=== PATIENT | male | born 1960 | race Caucasian/White ===

== ENCOUNTER 2019-05-13 01:43 | Day surgery (SDC) | payer BC, SELFPAY ==
[2019-05-11 08:53] VITALS: BMI 32.2
[2019-05-13 09:53] VITALS: BP 159/84; PULSE 51; RESP 16; TEMP 36.3; O2SAT 99; BMI 31.4
--- NOTE | 2019-05-13 10:02 | P.PNAN_ITS ---
Anes - Initial Pre Proc Eval Procedure: Operation Date: 05/13/19 10:15 Proposed Procedures p Screening Colonoscopy - Guille Meyers MD Date/Time: 05/13/19 10:02 Surgeon: Guille Meyers MD Pre Op Diagnosis: Neoplasm Screening Patient Data Age: 58 Gender: M Height: 5 ft 10 in Weight: 99.4 kg Last Vital Signs Temp 97.4 F L 05/13/19 09:53 Pulse 51 L 05/13/19 09:53 Resp 16 05/13/19 09:53 BP 159/84 H 05/13/19 09:53 Pulse Ox 99 05/13/19 09:53 Allergies Allergy/AdvReac Type Severity Reaction Status Date / Time No Known Allergies Allergy Verified 05/13/19 09:51 Home Medications Medication Instructions Recorded Confirmed Type aspirin [Aspir-81] 81 mg PO DAILY 05/11/19 05/13/19 History losartan-hydrochlorothiazide 1 tablet PO DAILY 05/11/19 05/13/19 History nebivolol [Bystolic] 20 mg PO DAILY 05/11/19 05/13/19 History peg 3350-electrolytes 236 240 ml PO Q10M #4000 ml 05/11/19 Rx gram-22.74 gram-6.74 gram-5.86 gram solution Patient hx anesthesia problems: none Family hx anesthesia problems: none [facility] Past Medical History Medical History (Updated 05/13/19 @ 10:02 by Jeevan Ley MD) Hypertension Anes - Eval Final PreProcedure Day of Procedure 05/13/19 10:02 Patient weight: overweight Heart: regular rate and rhythm Lungs: clear to auscultation Airway: Mallampati scale class II Neurological: alert and oriented Last oral intake: >/= 8 hours ASA classification: II Emergent: no Anesthetic plan: proceed Anesthesia type and monitoring: general GIVS and standard monitoring Informed Consent: The patient's anesthetic plan and its attendant risks and benefits were discussed with the patient/family/POA. Questions were solicited and answers provided to the satisfaction of the patient/family/POA.
[2019-05-13] MEDS: LACTATED RINGERS 1,000 ML 150 ML IV CONT (10:04)
--- NOTE | 2019-05-13 10:49 | PM.HPGS ---
History of Present Illness History of Present Illness Consent: Risks, benefits, and alternatives have been discussed and questions answered. Patient agrees to proceed with procedure. Chief complaint: Neoplasm Screening Narrative: Rustam Michelle is a 58 year old male here for screening colonoscopy, last one was normal but about 15 years ago Review of Systems Constitutional: Constitutional: Denies headache(s) and Denies weakness Eyes: Eyes: Denies blurry vision ENT: Reports Normal hearing present, Denies headache(s) and Denies neck pain Cardiovascular: Cardiovascular: Denies chest pain and Denies dyspnea Respiratory: Respiratory: Denies dyspnea Gastrointestinal: Gastrointestinal: Reports no additional gastrointestinal complaints Genitourinary: Genitourinary: Denies dysuria Musculoskeletal: Musculoskeletal: Denies neck pain Integumentary/Breasts: Skin/Breast: Denies dry skin Neurologic: Reports Normal hearing present, Denies headache(s) and Denies weakness Psychiatric: Psychiatric: Denies anxiety Endocrine: Endocrine: Denies change in body appearance Hematologic/Lymphatic: Hematologic/Lymphatic: Denies easy bleeding Allergic/Immunologic: Allergic/Immunologic: Denies urticaria PMFSH Past Medical History Medical History (Updated 05/13/19 @ 10:50 by Guille Meyers MD) Colon cancer screening Hypertension Meds Home Medications and Allergies Home Medications Medication Instructions Recorded Confirmed Type aspirin [Aspir-81] 81 mg PO DAILY 05/11/19 05/13/19 History losartan-hydrochlorothiazide 1 tablet PO DAILY 05/11/19 05/13/19 History nebivolol [Bystolic] 20 mg PO DAILY 05/11/19 05/13/19 History peg 3350-electrolytes 236 240 ml PO Q10M #4000 ml 05/11/19 Rx gram-22.74 gram-6.74 gram-5.86 gram solution Allergies Allergy/AdvReac Type Severity Reaction Status Date / Time No Known Allergies Allergy Verified 05/13/19 09:51 Vital Signs Vital Signs - 24 hr 05/13/19 09:53 Temperature 97.4 F L Pulse Rate 51 L Respiratory Rate 16 Blood Pressure 159/84 H Pulse Oximetry 99 Exam Const: General: comfortable and no acute distress HENMT: General nose exam: Normal nares present Eyes: General: appearance normal, both eyes and all related structures Neck: Neck: no JVD Resp: Auscultation: clear to auscultation bilaterally Cardio: Rate: regular rate Rhythm: regular rhythm GI: Inspection: non-distended GI Palp: Yes Soft to palpation Skin: General skin exam: normal color Neuro: General: gait normal Speech: normal speech Extrem: General: normal to inspection Psych: Mental Status: mental status grossly normal Assessment and Plan Assessment and plan (1) Colon cancer screening: Code(s): Z12.11 - Encounter for screening for malignant neoplasm of colon Status: Acute Assessment and Plan: will proceed with colonoscopy (2) Hypertension: Qualifiers: Hypertension type: essential hypertension Qualified Code(s): I10 - Essential (primary) hypertension Code(s): I10 - Essential (primary) hypertension Status: Acute
[2019-05-13 11:12] VITALS: BP 118/80; PULSE 65; RESP 15; O2SAT 99
[2019-05-13 11:22] VITALS: BP 135/79; PULSE 56; RESP 13; O2SAT 100
[2019-05-13 11:31] VITALS: BP 151/98; PULSE 55; RESP 19; O2SAT 100
== END 2019-05-13 11:45 | disposition home or self-care (01) ==
PROVIDERS: PCP Family Medicine Sports Medicine; Visit Provider Internal Medicine Gastroenterology
PROC: 0DJD8ZZ Inspection of Lower Intestinal Tract, Via Natural or Artificial Opening Endoscopic (ICD-10-PCS; CPT 45378; principal; 2019-05-13 10:15)
DX: Z12.11 Encounter for screening for malignant neoplasm of colon (principal); K57.30 Diverticulosis of large intestine without perforation or abscess without bleeding; I10 Essential (primary) hypertension; Z79.82 Long term (current) use of aspirin
CPT/HCPCS: 45378; J2704; J7120

== ENCOUNTER 2021-07-15 11:37 | Emergency (ER) | payer BC, SELFPAY ==
[2021-07-15] VITALS (7 sets, daily range): BP systolic 118–150; BP diastolic 71–84; PULSE 48–65; RESP 11–18; O2SAT 97–100
--- NOTE | ~2021-07-15 | CT_ITS ---
EXAMINATION: CT brain wo con DATE: 07/15/2021 13:03 INDICATION: Dizziness TECHNIQUE: Computed tomography (CT) of the head was performed without intravenous contrast. Sagittal and coronal reconstructions were performed. The mA was adjusted according to patient size. Iterative reconstruction technique was employed. The dose-length product was 605.33 mGy-cm. COMPARISON: head CT dated 11/10/2016 FINDINGS: No acute intracranial hemorrhage, acute infarction or abnormal extra axial fluid collection. No inter sis change in disproportionate ventricular dilatation of the ventricles relative to the sulci. No mas s/mass effect. The orbits, paranasal sinuses and mastoid air cells are normal. IMPRESSION: 1. Persistent ventriculomegaly which could be due to central predominant volume loss versus normal pr essure hydrocephalus (NPH: clinical triad ataxia/gait disturbance, dementia, urinary incontinence). Reviewed, dictated and finalized at location A. IMPRESSION: 1. Persistent ventriculomegaly which could be due to central predominant volume loss versus normal pressure hydrocephalus (NPH: clinical triad ataxia/gait disturbance, dementia, urinary incontinence).
--- NOTE | 2021-07-15 11:49 | ECG_ITS ---
Measurements Intervals [place] Rate: 50 P: 5 DE: 174 QRS: -13 QRSD: 120 T: 13 QT: 434 QTc: 396 Interpretive Statements SINUS BRADYCARDIA MODERATE INTRAVENTRICULAR CONDUCTION DELAY [110+ ms QRS DURATION] OTHERWISE UNREMARKABLE ECG NO PREVIOUS ECG AVAILABLE FOR COMPARISON Electronically Signed On 07-16-2021 16:05:31 CDT by Emery Cruz M.D.
[2021-07-15 12:06] LABS: Basophils Percent Auto 0.2 % (0.2-1.2); Eosinophils Absolute Auto 0.2 K/mm3 (0-0.3); Eosinophils Percent Auto 2.4 % (0-4.4); Hematocrit 43.8 % (42.0-52.0); Hemoglobin 14.9 g/dL (14.0-18.0); Immature Granulocyte Absolute 0.02 K/mm3 (0.00-0.031); Immature Granulocyte Percent A 0.3 % (0-0.5); Lymphocytes Absolute Auto 1.58 K/mm3 (0.9-3.2); Mean Corpuscular Hemoglobin 30.9 pg (26-34); Mean Corpuscular Volume 90.9 fl (80-100); Mean Platelet Volume 10.7 fl (7.4-10.4); Monocytes Absolute Auto 0.8 K/mm3 (0.1-0.6); Neutrophils Absolute Auto 3.8 K/mm3 (1.3-6.7); Neutrophils Percent Auto 60.1 % (45.5-73.1); Platelet Count Result 241 k/mm3 (150-375); Red Blood Count 4.82 M/mm3 (4.6-6.20); Red Cell Distribution Width 11.8 % (11.5-14.5); White Blood Count 6.3 K/mm3 (4.5-10.0)
[2021-07-15 12:17] LABS: Alanine Aminotransferase 34 U/L (4-50); Albumin Level 4.7 g/dL (3.5-5.1); Alkaline Phosphatase 73 U/L (38-126); Anion Gap 8 mmol/L (8-16); Aspartate Amino Transferase 34 U/L (17-59); Bilirubin,Total 0.4 mg/dL (0.2-1.3); Blood Urea Nitrogen 20 mg/dL (9-20); Calcium 9.4 mg/dL (8.4-10.2); Carbon Dioxide 30 mmol/L (22-30); Chloride 99 mmol/L (98-107); Estimated CRCL calculation 75 ml/min; Estimated Glomerular Filt Rate > 60; Glucose 208 mg/dL (65-110); Potassium 3.6 mmol/L (3.4-5.0); Sodium 137 mmol/L (137-145)
--- NOTE | 2021-07-15 12:27 | ED.DIZZY ---
HPI - Dizziness General Chief Complaint: Dizziness Stated Complaint: almost passed out Time Seen by Provider: 07/15/21 12:11 Source: patient Mode of arrival: ambulatory Limitations: no limitations History of Present Illness HPI Narrative: Patient is a 60-year-old male complaining of near syncopal episode while at [employer] today. Patient states that he felt dizzy and almost passed out. Patient denies any speech or visual disturbance, focal weakness or numbness, chest pain, shortness of breath, abdominal pain, nausea, vomiting, diaphoresis, fever or chills. Patient currently asymptomatic, states that he is feeling better, no complaints at this time. Related Data Home Medications Medication Instructions Recorded Confirmed aspirin [Aspir-81] 81 mg PO DAILY 05/11/19 07/15/21 losartan-hydrochlorothiazide 1 tablet PO DAILY 05/11/19 07/15/21 nebivolol [Bystolic] 20 mg PO DAILY 05/11/19 07/15/21 amlodipine 10 mg PO DAILY 07/15/21 07/15/21 metformin 500 mg PO BID 07/15/21 07/15/21 Allergies Allergy/AdvReac Type Severity Reaction Status Date / Time No Known Allergies Allergy Verified 05/13/19 09:51 Review of Systems Review of Systems: All systems reviewed & are unremarkable except as noted in HPI and below Constitutional: Constitutional: Denies body ache(s), Denies chills, Denies excessive sweating, Denies fatigue, Denies fever(s), Denies headache(s), Denies lethargy, Denies malaise, Denies weakness and Denies weight loss Eyes: Eyes: Denies blurry vision, Denies change in vision and Denies loss of vision ENT: Denies dizziness, Denies ear discharge, Denies headache(s), Denies lip swelling, Denies epistaxis, Denies nasal congestion, Denies neck pain, Denies throat swelling and Denies tongue swelling Cardiovascular: Cardiovascular: Denies chest pain, Denies chest pain at rest, Denies chest pain with activity, Denies diaphoresis, Denies rapid heart rate, Denies edema, Denies irregular heart rhythm, Denies lightheadedness, Denies palpitations, Denies dyspnea and Denies dyspnea on exertion Respiratory: Respiratory: Denies chest congestion, Denies cough, Denies hemoptysis, Denies dyspnea and Denies dyspnea on exertion Gastrointestinal: Gastrointestinal: Denies abdominal pain, Denies melena, Denies hematochezia, Denies diarrhea, Denies nausea, Denies vomiting and Denies hematemesis Musculoskeletal: Musculoskeletal: Denies abnormal gait, Denies deformity, Denies joint swelling, Denies limited range of motion, Denies neck pain and Denies numbness Neurologic: Denies Abnormal speech present, Denies abnormal gait, Denies confusion, Denies headache(s), Denies focal weakness, Denies loss of vision, Denies numbness, Denies Other visual disturbances, Denies Sensory deficit (Neuro) and Denies weakness Psychiatric: Psychiatric: Denies confusion, Denies depression, Denies auditory hallucinations, Denies homicidal ideation and Denies suicidal ideation Endocrine: Endocrine: Denies cold intolerance, Denies excessive sweating, Denies fatigue, Denies heat intolerance and Denies palpitations Hematologic/Lymphatic: Hematologic/Lymphatic: Denies easy bleeding and Denies easy bruising Allergic/Immunologic: Allergic/Immunologic: Denies lip swelling, Denies throat swelling and Denies tongue swelling [facility] Past Medical History Medical History (Updated 07/15/21 @ 14:05 by Davie Johnston MD) Colon cancer screening Hypertension Comments Family history: Hypertension Social history: Non-smoker no EtOH or drug use Exam Const: General: cooperative, healthy appearing, comfortable, no acute distress, well developed, alert and awake; No confusion Orientation/consciousness: oriented to person, oriented to place, oriented to time, patient oriented x3 and No confusion Limitations: no limitations HENMT: Head: normal to inspection, normocephalic and atraumatic Ears: hearing grossly normal bilaterally, TM normal on the right and TM normal on the left General nose
[2021-07-15] MEDS: SODIUM CHLORIDE 0.9% IV 1,000 ML 999 ML IV CONT (12:37)
== END 2021-07-15 14:20 | disposition home or self-care (01) ==
PROVIDERS: Emergency Medicine; Emergency Provider Emergency Medicine; PCP Family Medicine Sports Medicine
DX: R55 Syncope and collapse (principal); R42 Dizziness and giddiness; I10 Essential (primary) hypertension; Z79.82 Long term (current) use of aspirin; Z79.84 Long term (current) use of oral hypoglycemic drugs; R00.1 Bradycardia, unspecified; I45.9 Conduction disorder, unspecified
CPT/HCPCS: 36415; 70450; 80053; 85025; 93005; 96360; 99284; J7030

== ENCOUNTER 2024-07-12 07:03 | Outpatient (CLI) | payer BC, SELFPAY ==
--- OUTSIDE RECORDS SUMMARY | 2024-07-12 07:07 | XMS_ITS | Clinical Summary ---
Author Organization [facility] [employer] Address [address] [place] [address] Care Team Providers Care Steno Typist Name Role Phone Unavailable Primary Care Provider Unavailabl e Source Comments [facility],non-owned Affiliates and Associated Physician Practices is amultiple site organization consisting of ambulatory clinics and hospital sitesin [place], [place], [place] and [place]. This disclosure is being madepursuant to the Care Everywhere program and may not contain all information available regarding this patient. Last updated 17.[facility] Allergies No known active allergies Medications * Be aware that medications may not be up to date on this document. Alwaysverify current medications with the patient. Nebivolol HCl (BYSTOLIC PO) Active losartan-hydroCH LOROthiazide (HYZAAR) 100-25 MG tablet Take 1 tablet by mouth once daily Active Social History Tobacco Use Types Packs/Day Years Used Date Smoking Tobacco: Never Smokeless Tobacco: Never Sex and Gender Information Value Date Recorded Sex Assigned at Not on file Legal Sex Male 10:26 AM CDT Gender Identity Not on file Sexual Orientation Not on file Last Filed Vital Signs Vital Sign Reading Time Taken Comments Blood Pressure 160/98 10/26/2018 12:15 PM CDT Pulse 68 10/26/2018 11:58 AM CDT Temperature 36.9 C (98.4 F) 10/26/2018 11:58 AM CDT Respiratory Rate 16 10/26/2018 11:58 AM CDT Oxygen Saturation 98% 10/26/2018 11:58 AM CDT Inhaled Oxygen Concentration - - Weight 102.1 kg (225 lb) 10/26/2018 11:58 AM CDT Height 180.3 cm (5' 11 ) 10/26/2018 11:58 AM CDT Body Mass Index 31.38 10/26/2018 11:58 AM CDT Plan of Treatment Health Maintenance Due Date Last Done Comments COLOGUARD (AGES 45-75) - COL ON CA SCREENING 1959 COLON MONITORING 1959 COLONOSCOPY - COLON CA SCREENING 1959 CT COLONOGRAPHY - COLON CA SCREENING 1959 Colorectal Cancer Screening 1959 FIT - COLON CA SCREENING 1959 FLEX SIG - COLON CA SCREENING 1959 LIPID TESTING 1959 HIV SCREENING 11/29/1974 HEPATITIS C SCREENING 11/25/1977 DTAP/TDAP/TD VACCINES (1 - Tdap) 11/29/1978 PNEUMOCOCCAL VACCINE 50+ (1 of 1 - PCV) 11/29/2009 ZOSTER VACCINE (1 of 2) 11/29/2009 SCREENING FOR DIABETES 10/26/2018 COVID-19 VACCINE ( - 2023-2 5 season) 2023 DEPRESSION SCREENING 03/24/2024 INFLUENZA VACCINE (Season Ended) 2024 Respiratory Syncytial Virus (RSV) Vaccine Pt: or over 60 yrs (1 - 1-dose 75+ series) 11/29/2034 HEPATITIS B VACCINE Aged Out No longe r eligible based on patient's age to complete this topic HIB VACCINE Aged Out No longer eligi ble based on patient's age to complete this topic HPV VACCINE Aged Out No longer eligi ble based on patient's age to complete this topic MENINGOCOCCAL (Group B) VACC INE SHARED DECISION-MAKING Aged Out No longer eligibl e based on patient's age to complete this topic MENINGOCOCCAL GROUPS A/C/Y/W VACCINE Aged Out No longer eligible b ased on patient's age to complete this topic PNEUMOCOCCAL VACCINE Aged Out No long er eligible based on patient's age to complete this topic Insurance [employer]
[2024-07-12 08:05] LABS: Anion Gap 13 mmol/L (4-12); Blood Urea Nitrogen 18 mg/dL (9-20); Carbon Dioxide 25 mmol/L (22-30); Chloride 102 mmol/L (98-107); Estimated Glomerular Filt Rate > 60; Glucose 119 mg/dL (65-110); Potassium 3.4 mmol/L (3.4-5.0); Sodium 140 mmol/L (137-145)
== END 2024-07-12 07:04 | disposition home or self-care (01) ==
LOC: ANHLAB 07:05
PROVIDERS: PCP Family Medicine; Visit Provider Anesthesiology
DX: E87.6 Hypokalemia (principal)
CPT/HCPCS: 36415; 80048

== ENCOUNTER 2024-07-16 01:12 | Day surgery (SDC) | payer BC, SELFPAY ==
[2024-07-07 13:46] VITALS: BMI 29.3
--- NOTE | 2024-07-07 14:01 | PC.NURSE ---
Report to the Outpatient Waiting Room, entrance under the green pavilion located off [facility], at time ___729____ on date ____07/16/24___. Planned Procedure Time: ____929____.? Time changes happen often and if your time is changed the preop area will call you the afternoon before. - You and your visitor will be asked to self-screen and do not enter if you have any COVID symptoms. Please call surgeon if you need to reschedule. - A mask is optional within the hospital at this time. Patients may have clear liquids (water, carbonated beverages, clear teas, apple juice) until 3 hours prior to surgery with a maximum of 20 ounces. - No food from midnight until time of surgery and no smoking, or chewing tobacco (or any form of nicotine). No chewing gum, candy or mints. Take only the following medications with a SIP of water on the morning of surgery: ____amlodipine, nebivolol___ DO NOT STOP ANY OF YOUR OTHER PRESCRIPTION MEDICATIONS PRIOR TO SURGERY EXCEPT THE FOLLOWING Hold all vitamins and supplements for 3 days per anesthesiologist. Medications to discontinue per physician Please Hold losartan - hydrochlorithiazide and metformin moring of surgery. Hold Aspirin per physician. Please no make-up, nail croatian, hairspray, perfume, deodorant, or body powder the day of surgery.? No jewelry (including any body piercings) or valuables the day of surgery, leave them at home.? Please take a shower or bath the night before, or the morning of, surgery with an antibacterial soap.? Wear comfortable, loose fitting clothing.? Children are encouraged to wear pajamas. - Jewelry must be removed prior to entering the operating room.? Rings and piercings that are not removed may be cut off. - The hospital will not accept responsibility for valuables.? - Please leave all valuables, including medications, at home the day of surgery. If you are going home after surgery, a licensed rear load truck driver must drive you home.? - NO public transportation without another adult if you receive anesthesia. - We recommend that an adult stay with you for 24 hours following discharge. - We also recommend that you do not drive, make important decision, drink alcoholic beverages, or take any drugs that were not prescribed by your health care provider for at least 24 hours after your discharge time. Follow any additional instructions given to you from your surgeon. Telephone instructions given to ____Louis____and asked if any additional questions and then verbalized understanding. Patient advised to call surgeon office or pre surgery nurse liaison [phone] if any additional questions.
--- NOTE | ~2024-07-16 | XR_ITS ---
EXAMINATION: XR surgery orthopedic DATE: 07/16/2024 10:34 INDICATION: Right foot arthrodesis TECHNIQUE: 3 fluoroscopic images of the right great toe were obtained during procedure performed by Robina Rodríguez. Radiologist was not present for the imaging or procedure. The amount of fluoroscopy time used during this procedure was 0.2 minutes. Total DAP was 0.780 cGym^2. COMPARISON: None. 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 There is mild osteoarthritis at many of the interphalangeal joints. Subsequent image demonst rates reduction of the hallux valgus and fixation with an axially directed percutaneous pin which ext ends from the tuft of the distal phalanx across the first metatarsophalangeal joint into the head of the first metatarsal extending beyond the proximal margin field of imaging. There is postoperative ga s along the medial margin of the head of the first metatarsal and with a suture anchor at the medial base of the first proximal phalanx potentially for medial collateral ligament reconstruction. IMPRESSION: 1. Fluoroscopy utilized during orthopedic procedure at the right first metatarsophalangeal joint with percutaneous pin fixation. See procedure note for further detail. Reviewed, dictated and finalized at location A. IMPRESSION: 1. Fluoroscopy utilized during orthopedic procedure at the right first metatars ophalangeal joint with percutaneous pin fixation. See procedure note for furthe r detail.
--- OUTSIDE RECORDS SUMMARY | 2024-07-16 01:16 | XMS_ITS | Clinical Summary ---
Author Organization [facility] Address [address] [place] [address] Care Team Providers Care Medical Office Assistant Name Role Phone Unavailable Primary Care Provider Unavailabl e Source Comments [facility],non-owned Affiliates and Associated Physician Practices is amultiple site organization consisting of ambulatory clinics and hospital sitesin [place], [place], [place] and [place]. This disclosure is being madepursuant to the Care Everywhere program and may not contain all information available regarding this patient. Last updated 17.[facility] Allergies No known active allergies Medications * [...] 11:58 AM CDT Height 180.3 cm (5' 11) 10/26/2018 11:58 AM CDT Body Mass Index [...] patient's age to complete this topic [place] [address] [place] [address]
--- NOTE | 2024-07-16 07:13 | WPDHPUPDATE1 ---
History and Physical Update Update Date/Time: 07/16/24 07:13 History and Physical has been reviewed, including an updated exam of the patient. There are NO changes in the patient's condition. Risks, benefits, and alternatives have been discussed and questions answered. Patient agrees to proceed with procedure.
--- NOTE | 2024-07-16 08:07 | P.PNAN_ITS ---
Anes - Initial Pre Proc Eval Procedure: Operation Date: 07/16/24 09:30 Proposed Procedures p Arthrodesis of First Metatarsal Phalangeal Joint Right Foot - Jose Elias Rodríguez Jr., DPM s Flexor Tenotomy Second Through Fifth Digits Right Foot - Jose Elias Rodríguez Jr., DPM Date/Time: 07/16/24 08:07 Surgeon: Jose Elias Rodríguez Jr., DPM Pre Op Diagnosis: Bunion Rt Foot, Hammertoes 2nd - 5 Digits Patient Data Age: 63 Gender: M Height: 1.8 m Weight: 95.5 kg Allergies Allergy/AdvReac Type Severity Reaction Status Date / Time No Known Allergies Allergy Verified 07/07/24 13:33 Home Medications ?Medication ?Instructions ?Recorded ?Confirmed ?Type aspirin 81 mg tablet,delayed 81 mg PO DAILY 05/11/19 07/07/24 History release (Aspir-) losartan 100 1 tablet PO DAILY 05/11/19 07/07/24 History mg-hydrochlorothiazide 25 mg tablet nebivolol 20 mg tablet (Bystolic) 20 mg PO DAILY 05/11/19 07/07/24 History amlodipine 10 mg tablet 10 mg PO DAILY 07/15/21 07/07/24 History metformin 500 mg tablet,extended 500 mg PO BID 07/15/21 07/07/24 History release 24 hr Patient hx anesthesia problems: none Family hx anesthesia problems: none Results Review: All pre-operative results and documents have been reviewed as part of the pre- operative evaluation. [facility] Past Medical History Medical History (Updated 07/16/24 @ 08:07 by Mychal Peres MD) Snoring Diabetes Colon cancer screening Hypertension Surgical History Surgical History (Updated 07/16/24 @ 08:07 by Mychal Peres MD) History of carpal tunnel surgery H/O elbow surgery Social History Social History Smoking status: Never smoker Alcohol use details: not on a regular basis Substance use: never Substance use type: does not use Living arrangements: with family Anes - Eval Final PreProcedure Day of Procedure 07/16/24 08:07 Patient weight: overweight Heart: regular rate and rhythm Lungs: clear to auscultation Airway: Mallampati scale class II Neurological: alert and oriented Last oral intake: >/= 8 hours ASA classification: III Emergent: no Anesthetic plan: proceed Anesthesia type and monitoring: general GIVS and standard monitoring Results Review: All pre-operative results and documents have been reviewed as part of the pre- operative evaluation. Informed Consent: The patient's anesthetic plan and its attendant risks and benefits were discussed with the patient/family/POA. Questions were solicited and answers provided to the satisfaction of the patient/family/POA.
[2024-07-16 08:42] LABS: Glucose Point of Care 127 mg/dl (65-105)
[2024-07-16 09:00] VITALS: BP 134/86; PULSE 55; RESP 14; TEMP 36.3; O2SAT 100
[2024-07-16] MEDS: LACTATED RINGERS 1,000 ML 30 ML IV CONT (09:00)
[2024-07-16] MEDS: ceFAZolin 2 GM/D5W 50 ML 2 GM/50 ML BAG IVPB (10:04)
[2024-07-16] MEDS: LIDOCAINE 2% LOCAL INJ 20 ML VIAL 10 ML INFILTRATE (10:06)
[2024-07-16 10:52] VITALS: BP 104/61; PULSE 54; RESP 14; O2SAT 96
--- NOTE | 2024-07-16 10:57 | P.OP_ITS ---
Procedure Note - Detailed Date of Procedure 07/16/24 Pre-op Diagnosis 1. Bunion Right Foot 2. Hammertoes 2nd-5th Digits Right Foot Post-op Diagnosis Same Procedure Performed 1. Arthrodesis 1st metatarsal phalangeal joint right foot 2. Flexor Tenotomy 2nd though 5th digits right foot Surgeon Jose Elias Rodríguez Jr., DPM Anesthesia MAC and Local Indications 1. Severe bunion right foot 2. Reducible hammertoe deformity second through fifth digit right foot Description of Procedure PROCEDURE IN DETAIL: Under mild sedation, the patient was brought into the operating room, placed on the operating table in supine position. A pneumatic ankle tourniquet was placed about the patient's ipsilateral ankle. Following IV sedation and a local anesthetic block was obtained about the foot and ankle utilizing 20 cc of a one to one mix of 2% Lidocaine plain and 0.5% Marcaine plain. The foot was then scrubbed, prepped, and draped in the usual aseptic manner. An Esmarch bandage was then used to exsanguinate the patient's foot and the pneumatic ankle tourniquet was then inflated. Surgery began in the following manner: Attention was directed to the dorsal aspect of the 1st metatarsophalangeal joint where there was a large subcutaneous prominence noted along the medial aspect of the joint with severe lateral deviation with near complete dislocation. The incision was made starting along the central shaft of the 1st metatarsal and extending just proximal to the interphalangeal joint of the hallux. The incision was continued deep down through the subcutaneous tissues using sharp and blunt dissection. All bleeders were cauterized as necessary. At this point, the dissection was continued down to the level of the periosteum and capsular structures overlying the 1st metatarsophalangeal joint. A full length periosteum and capsular incision was made just medial to the extensor hallucis longus tendon. The periosteum and capsular structures were freed from the base of the proximal phalanx as well as the distal 1st metatarsal. At this point, the 1st metatarsophalangeal joint was identified. There was almost complete loss of articular cartilage to the head of the 1st metatarsal as well as the base of the proximal phalanx. There was mild broadening and hypertrophy of the 1st metatarsophalangeal joint. Utilizing a sagittal bone saw, the hypertrophied 1st metatarsal was resected dorsally, medially, and laterally. A power bur was used to make sure that there were no rough edges and also to further debride the hypertrophic 1st metatarsal. Next, a rongeur was used to resect all hypertrophic base of the proximal phalanx. At this point, a sagittal saw blade was used to flat cut and resect the degenerative cartilage from the head of the 1st metatarsal as well as the base of the proximal phalanx. Next, a 0.062 K wire was driven into the base of the proximal phalanx and out the distal aspect of the hallux and then retrograded into the shaft of the first metatarsal. I placed a [employer] ball was placed along the distal hallux and the k wire cut flush. Next a 2.0mm Arthrex trim it pin was driven from the medial base of the proximal phalanx into the distal lateral first metatarsal to provide another point of stabilization, it was cut f lush against the cortical bone distally. The wound site was then flushed with copious amounts of sterile saline. Fluoroscopy was used to make sure that the bunion deformity was reduced and to make sure the K wire was appropriately positioned. Next, the periosteum and capsular structures were reapproximated with 3-0 Vicryl. Next, the subcutaneous structures were reapproximated with 4-0 Vicryl. Next, the skin was reapproximated and coapted utilizing 4-0 Monocryl in running subcuticular suture fashion technique. Next, a small 5mm incision was made along the plantar aspect of the Proximal Interphalangeal joint of the second digit. A 6100 blade was used to release the flexor tendon. Moreover, a 4-0 Prolene was used to reapproximate the skin. The same procedure was duplicated for the remaining lesser digits. Upon completion of the procedure, the incision was dressed with Steri-Strips, Adaptic, 4x4s, Kerlix, and Coban. The pneumatic ankle tourniquet was then deflated and a prompt hyperemic response was noted to all digits of the foot. A CAM Walker boot was then applied to the affected lower extremity. It is important to note that Dr. Rodríguez was present throughout the procedure. The patient did very well with the procedure and the anesthesia. He was transferred to the recovery room with vital signs stable and vascular status intact to all toes of the ipsilateral foot. Following a period of postoperative monitoring, the patient will be discharged home on the following written and oral postoperative instructions: 1. Keep the dressing clean, dry, and intact. 2. The patient will be protected weight bearing with a CAM walker boot. 3. The patient should ice and elevate the foot when at rest. 4. The patient should contact Dr. Rodríguez for all postop care and if any problems should arise. 5. Prescriptions were written for Percocet 5/325, dispensed 40 to be taken 1/2 p.o. q.4-6 hours as needed for severe pain. Furthermore, the patient should also take 325 mg aspirin daily. Implants 0.062 K wire Arthrex 2mm Trim it pin Estimated Blood Loss 1 Drains No Packing No Pathology None sent Complications No immediate complications Condition Stable Disposition Same day
[2024-07-16 11:16] LABS: Glucose Point of Care 118 mg/dl (65-105)
[2024-07-16 11:22] VITALS: BP 115/57; PULSE 53; RESP 16
[2024-07-16 11:52] VITALS: BP 137/73; PULSE 52; RESP 18
== END 2024-07-16 12:10 | disposition home or self-care (01) ==
PROVIDERS: PCP Family Medicine; Visit Provider Podiatrist Foot & Ankle Surgery
PROC: (CPT 28750; principal; 2024-07-16 09:30)
PROC: (CPT 28750; 2024-07-16 09:30)
DX: M20.11 Hallux valgus (acquired), right foot (principal); M21.611 Bunion of right foot; M20.41 Other hammer toe(s) (acquired), right foot; E11.9 Type 2 diabetes mellitus without complications; I10 Essential (primary) hypertension; G60.9 Hereditary and idiopathic neuropathy, unspecified; Z79.82 Long term (current) use of aspirin; Z79.84 Long term (current) use of oral hypoglycemic drugs; Z98.890 Other specified postprocedural states
CPT/HCPCS: 28750; 28011 ×4; 82948; 99199; C1713; C1769; J0690; J1100; J2003; J2250; J2405; J2704; J3010; J7120